=== PATIENT | male | born 1965 | race African-American/Black ===

== ENCOUNTER 2016-07-19 11:53 | Emergency (ER) | payer OTHER ==
[~2016-07-19] VITALS: Ht 191.8 cm; Wt 77.1 kg
[2016-07-19 11:58] VITALS: BP 109/63
== END 2016-07-19 12:49 | disposition admitted as inpatient to this hospital (09) ==
LOC: ERH 11:53
DX: F41.9 Anxiety disorder, unspecified (principal)